=== PATIENT | female | born 1970 | race American Indian/Alaskan Native ===

== ENCOUNTER 2016-11-18 06:02 | Day surgery (SDC) | payer OTHER ==
--- NOTE | 2016-11-17 22:54 | Short Stay Summary ---
Short Stay Documentation - History H&P: obtained from office Past Medical History: hypertension Past Surgical History: (x 2) Social history: - Allergies and Medications Current Medications: Allergies No Known Allergies Allergy (Unverified 11/16/16 16:28) Home Medications Medication Instructions Recorded Confirmed Last Taken Type Azelastine 0.1% (Nf) [Astelin (Nf)] 2 spray IH HS 11/16/16 11/16/16 Unknown History Cetirizine HCl [ZyrTEC] 10 mg PO DAILY 11/16/16 11/16/16 Unknown History Triamterene/Hydrochlorothiazid 1 tab PO DAILY 11/16/16 11/16/16 Unknown History [Triamterene-Hctz 37.5-25 mg Tb] Active Medications Famotidine (Pepcid) 20 mg PO PREOP NR Stop: 11/18/16 23:59 Sodium Chloride (Nacl 0.9% 1000 Ml) 1,000 mls @ 100 mls/hr IV DIRECT ADITYA Midazolam HCl (Versed) 2 mg IV PREOP NR Stop: 11/18/16 23:59 - Physical exam General appearance: no acute distress Lungs: Clear to auscultation, Normal air movement Heart: Regular rate, Normal S1, Normal S2 Gastrointestinal: normal, normoactive bowel sounds Female Genitourinary: normal Rectal Exam: deferred Extremities: No edema - Brief post op/procedure progress note Date of procedure: 11/18/16 Pre-op diagnosis: Menorrhagia Post-op diagnosis: same Procedure: D&C with hysterscopy, Failed Novasuere ablation Anesthesia: MAC Findings: Partially adhesed uterine cavity, no evidence of fibroids Surgeon: ANT SANTANA Estimated blood loss: minimal Pathology: list ([facility]) Specimen disposition: to lab Condition: stable - Disposition Condition at discharge: Good Disposition: DISCHARGED TO HOME OR SELFCARE Short Stay Discharge Plan Activity: advance as tolerated Weight Bearing Status: Weight Bear as Tolerated Diet: regular Follow up with: ANT SANTANA MD [Staff Physician] - 14 Days Prescriptions: HYDROcodone/APAP 5-325 [[place] 5/325] 1 each PO Q6HR PRN #20 tablet PRN Reason: Pain Ibuprofen [Motrin 800 MG tab] 800 mg PO Q8HR PRN #30 tablet PRN Reason: Pain
[~2016-11-18 06:02] MED LIST: ANCEF/STERILE WATER 2 GM/20 ML 20 ML IV NR; NACL 0.9% 1000 ML 1,000 ML IV SCH; PEPCID PO NR; VERSED IV NR
[2016-11-18] MEDS ORDERED: NACL BACTERIOSTATIC INFILTRATI ONE (06:35)
[2016-11-18] MEDS ORDERED: PERCOCET 5/325 PO PRN (06:46)
[2016-11-18] MEDS ORDERED: DILAUDID IV PRN (06:46)
--- NOTE | 2016-11-18 06:46 | Anesthesia Consultation ---
Anesthesia Consult and Med Hx Date of service: 11/18/16 - Airway Anesthetic Teeth Evaluation: Good ROM Head & Neck: Adequate Mental/Hyoid Distance: Adequate Mallampati Class: Class I Intubation Access Assessment: Good - Pulmonary Exam CTA: Yes - Cardiac Exam Cardiac Exam: RRR - Pre-Operative Health Status ASA Pre-Surgery Classification: ASA2 Proposed Anesthetic Plan: General - Cardiovascular System Hx Hypertension: Yes (x 3 yrs) Hx Heart Murmur: Yes - Central Nervous System Hx Psychiatric Problems: No - Other Systems Hx Alcohol Use: Yes (occas) Hx Cancer: No
--- NOTE | 2016-11-18 06:46 | Anesthesia Day of Surgery ---
Anesthesia Day of Surgery - Day of Surgery Patient Examined: Yes Patient H&P Reviewed: Yes Patient is NPO: Yes
[2016-11-18] MEDS ORDERED: SUBLIMAZE ONE (08:00)
[2016-11-18] MEDS ORDERED: DIPRIVAN 10 MG/ML IV ONE (08:00)
[2016-11-18] MEDS ORDERED: NACL 0.9% IR ONE ×2 (08:45)
[2016-11-18] MEDS ORDERED: ZOFRAN ONE (08:50)
[2016-11-18] MEDS ORDERED: XYLOCAINE MPF 2% ONE (08:50)
[2016-11-18] MEDS ORDERED: TORADOL ONE (08:53)
[2016-11-18] MEDS ORDERED: DILAUDID ONE ×2 (08:53)
[2016-11-18] MEDS ORDERED: DECADRON ONE (08:53)
--- NOTE | 2016-11-18 10:07 | Post Anesthesia Evaluation ---
- Post Anesthesia Evaluation Patient Participated: Yes Airway Patent: Yes Stable Respiratory Function: Yes Nausea/Vomiting: No Temp > 96.8F: Yes Pain Manageable: Yes Adequeate Hydration: Yes Anesthesia Complications: No Block Receding Appropriately: Not Applicable Patient on Ventilator: No
[2016-11-18 10:22] VITALS: BP 107/68
--- NOTE | 2016-12-01 12:08 | Operative Report ---
PREOPERATIVE DIAGNOSIS: Menorrhagia. POSTOPERATIVE DIAGNOSIS: Menorrhagia. PROCEDURES: 1. Attempted NovaSure endometrial ablation. 2. Dilation and curettage with hysteroscopy. SURGEON: Nicole Grissom MD ANESTHESIA: LMA. IV FLUIDS: 800 mL. URINE OUTPUT: 200 mL at the beginning of the procedure. COMPLICATIONS: Inability to properly open NovaSure during the course of the surgery. SPECIMENS: Endometrial curettings. DESCRIPTION OF PROCEDURE: The patient was taken to the OR with IV running in place. She was appropriately identified as herself. She was given adequate anesthesia and placed in dorsal lithotomy position. She was then prepped and draped in normal sterile fashion. Attention was turned to the patient's vagina. A speculum was placed into the vagina and the cervix was visualized and grasped with a tenaculum. The uterus was sounded to approximately 8 cm in length. The cervix was then gently dilated up to approximately 6 mm. Following this, hysteroscopy was performed. There was noting of scarring inside the uterine cavity. Following the hysteroscopy, a sharp curettage was performed. Following this, the NovaSure device was placed into the uterus according to preliminary school psychologist's directions. However, when attempting to open it for the width, the appropriate width could not be obtained for the ablation to be complete. It was attempted multiple times; however, there was no success. At this point, decision was made to abort the procedure and maintain the procedure only as dilation and curettage. At this point, the patient was awakened and taken to recovery in stable condition. She tolerated the procedure well. [facility]# [id number] MARITA/GATO
== END 2016-11-18 11:10 | disposition home or self-care (01) ==
LOC: OR 06:02
PROVIDERS: ATTEND Obstetrics & Gynecology
DX: N92.0 Excessive and frequent menstruation with regular cycle (principal); I10 Essential (primary) hypertension; Z72.89 Other problems related to lifestyle
CPT/HCPCS: 36415; 58563; 81025; 84132; 88305; A4217; J0690; J1100; J1170; J2250; J2405; J2704; J3010; J7030; J1885